=== PATIENT | female | born 1945 | race Caucasian/White ===

== ENCOUNTER 2019-03-07 18:11 | Observation (INO) | payer MEDICARE ==
[~2019-03-07 18:11] MED LIST: ISOVUE-370 76%-LOCM 1 ML ONE
[2019-03-07 18:27] LABS: #Basophils 0.1 thou/uL (0.0-0.2); #Eosinphils 0.2 thou/uL (0.0-0.7); #Lymphocytes 2.3 thou/uL (1.20-3.40); #Monocytes 0.6 thou/uL (0.11-0.59); %Basophils 1.2 % (0.0-1.0); %Eosinophils 3.2 % (0.0-10.0); %Lymphocytes 44.9 % (21.0-51.0); %Monocytes 11.7 % (0.0-10.0); Hemoglobin 12.7 g/dL (12.0-16.0); Mean Corpuscular HGB CONC 32.5 g/dL (32.0-36.0); Mean Corpuscular Hemoglobin 30.9 pg (27.0-31.0); Mean Corpuscular Volume 95.3 fL (78.0-98.0); Mean Platelet Volume 8.5 fL (7.4-10.4); Platelet Count 197 thou/uL (130-400); RBC Distribution Width 11.2 % (11.5-14.5); Red Blood Cell (RBC) Count 4.11 mill/uL (4.20-5.40)
--- NOTE | 2019-03-07 18:34 | RAD ---
Chest one view HISTORY: Chest pain. FINDINGS: No comparison. Cardiac silhouette is magnified by projection. Pulmonary vasculature is unre markable. Mediastinum is midline with aortic calcification. No confluent airspace consolidation or evidence of pneumothorax. Metallic clips over the upper abdomen. color television console monitor leads overlie the ch est. IMPRESSION: Atherosclerosis. No active cardiopulmonary abnormalities are demonstrated.
--- NOTE | 2019-03-07 18:35 | RAD ---
AP pelvis one view HISTORY: Pelvic pain. FINDINGS: Sacral alae and pelvic rings are intact. Degenerative changes of the hips and sacroiliac stanton ints. Extensive postoperative changes of the lumbar spine. No displaced fractures are apparent. Phleboliths project over the pelvis. IMPRESSION: No acute osseous abnormalities are demonstrated.
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
[2019-03-07 18:58] LABS: ALT (SGPT) 22 U/L (8-55); AST (SGOT) 26 U/L (5-34); Alkaline Phosphatase 87 U/L (40-110); Anion Gap 8 mmol/L (10-20); BUN (Urea Nitrogen) 12 mg/dL (9.8-20.1); Bilirubin, Total 0.3 mg/dL (0.2-1.2); Calc. Creatinine Clearance 0 mL/min (70-130); Calcium 8.9 mg/dL (7.8-10.44); Carbon Dioxide 31 mmol/L (23-31); Chloride 103 mmol/L (98-107); Estimated GFR-MDRD 68; Globulin 2.5 g/dL (2.4-3.5); Glucose 88 mg/dL (83-110); Potassium 4.2 mmol/L (3.5-5.1); Protein, Total 6.5 g/dL (6.0-8.3); Sodium 138 mmol/L (136-145)
[2019-03-07] MEDS ORDERED: Lidocaine 1% (PF) 30 ML VIAL ONE (19:47)
[2019-03-07] MEDS ORDERED: Dextrose 5% in Water 1,000 ML IV PRN (20:07)
[2019-03-07] MEDS ORDERED: Morphine 2 MG/ML SYRINGE SLOW IVP PRN (20:07)
[2019-03-07] MEDS ORDERED: Ondansetron PF 4 MG/2 ML Vial IVP PRN (20:07)
[2019-03-07] MEDS ORDERED: Promethazine HCl 25 MG/ML VIAL IM/IV PRN (20:07)
[2019-03-07] MEDS ORDERED: Dextrose 50% Abboject 50 ML SYRINGE SLOW IVP PRN (20:07)
[2019-03-07] MEDS ORDERED: traMADol HCl 50 MG TAB PO PRN ×2 (20:17)
[2019-03-07 20:19] LABS: INR-International Normal Ratio 0.9; Prothrombin Time 12.1 SEC (12.0-14.7)
[2019-03-07] MEDS ORDERED: CEFAZOLIN 1 GM VIAL ONE (20:35)
[2019-03-07] MEDS ORDERED: Adacel (T-DAP) 0.5 ML SYRINGE ONE (20:35)
[2019-03-07 21:16] LABS: Bilirubin Negative (Negative); Blood, Urine Negative (Negative); Clarity Clear (Clear); Glucose, Urine (Dipstick) Normal (Negative); Leukocyte Negative Leu/uL (Negative); Nitrite Negative (Negative); Protein, Urine (Dipstick) Negative (Neg-Trace); Urobilinogen Normal mg/dL (Less than 2)
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
[2019-03-07] MEDS ORDERED: Ketorolac Tromethamine 30 MG/ML VIAL ONE (22:51)
[2019-03-07] MEDS ORDERED: HYDROcodone/Acetaminophen 5/325 mg Tablet ONE (22:51)
[2019-03-08] MEDS: Senokot S 8.6-50 MG TAB PO SCH ×2 (00:26→08:48)
[2019-03-08] MEDS: Ibuprofen 200 MG TAB PO SCH ×3 (00:30→14:10)
[2019-03-08] MEDS: Gabapentin 100 MG CAP PO SCH ×3 (00:30→14:10)
[2019-03-08] MEDS: Acetaminophen 500 MG TAB PO SCH ×3 (00:30→12:55)
[2019-03-08 00:45] VITALS: BMI 19.8
[2019-03-08] MEDS: Cyclobenzaprine 10 MG TAB PO PRN ×2 (02:46→08:49)
[2019-03-08 05:14] LABS: #Basophils 0.1 thou/uL (0.0-0.2); #Eosinphils 0.2 thou/uL (0.0-0.7); #Monocytes 0.6 thou/uL (0.11-0.59); #Neutrophils 2.6 thou/uL (1.40-6.50); %Basophils 0.9 % (0.0-1.0); %Lymphocytes 36.7 % (21.0-51.0); %Neutrophils 48.4 % (42.0-75.0); Hemoglobin 11.5 g/dL (12.0-16.0); Mean Corpuscular HGB CONC 31.3 g/dL (32.0-36.0); Mean Corpuscular Volume 95.7 fL (78.0-98.0); Mean Platelet Volume 8.3 fL (7.4-10.4); Platelet Count 166 thou/uL (130-400); RBC Distribution Width 11.2 % (11.5-14.5); Red Blood Cell (RBC) Count 3.83 mill/uL (4.20-5.40); White Blood Cell (WBC) Count 5.3 thou/uL (4.8-10.8)
[2019-03-08 05:39] LABS: Anion Gap 9 mmol/L (10-20); BUN (Urea Nitrogen) 14 mg/dL (9.8-20.1); Calc. Creatinine Clearance 48 mL/min (70-130); Calcium 8.6 mg/dL (7.8-10.44); Carbon Dioxide 31 mmol/L (23-31); Chloride 105 mmol/L (98-107); Estimated GFR-MDRD 68; Glucose 86 mg/dL (83-110); Magnesium 1.9 mg/dL (1.6-2.6); Phosphorus 4.2 mg/dL (2.3-4.7); Potassium 4.2 mmol/L (3.5-5.1); Sodium 141 mmol/L (136-145)
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
--- NOTE | 2019-03-08 08:54 | PRG ---
DATE OF SERVICE: 03/08/2019 This morning, Ms. Quinteros's right leg seems to be feeling much better. She is still very sore to the right flank and there is this soft, very tender mass underneath one of the incisions that we used for her lumbar surgery three years ago. I am not sure this represents some kind of peculiar incisional hernia, but we can evaluate with ultrasound this morning and then follow up thereafter, if there is anything suspicious or concerning, although I do not believe that there will be. I discussed with her followup with her surgeon in [place] once she arrives . She thinks her daughter will be coming in today to arrange her getting back to [place]. Neurosurgery will sign off at this time. Job ID: [id number]
[2019-03-08] MEDS ORDERED: Aspirin 81 mg Enteric Coated Tablet PO SCH (09:00)
[2019-03-08] MEDS ORDERED: Polyethylene Glycol 3350 17 GM Packet PO SCH (09:00)
--- NOTE | 2019-03-08 12:40 | ULT ---
US Soft Tissue Abd Wall History: Pain. Evaluate for hernia. Comparison: CT examination prior day Findings: Although not well seen on the ultrasound examination, there is a right lumbar hernia along the right flank. Impression: Although not well seen on the ultrasound examination is a fat-containing inferior right l umbar hernia seen on the CT examination prior day.
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
[2019-03-08 15:24] VITALS: BP 87/48; TEMP 98
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
== END 2019-03-08 15:30 | disposition home or self-care (01) ==
LOC: ERS 18:11 → SURG A 20:07
PROVIDERS: ADMIT Surgery; ATTEND Surgery
DX: S50.11XA Contusion of right forearm, initial encounter (principal); V89.2XXA Person injured in unspecified motor-vehicle accident, traffic, initial encounter; S61.219A Laceration without foreign body of unspecified finger without damage to nail, initial encounter; J44.9 Chronic obstructive pulmonary disease, unspecified; I48.91 Unspecified atrial fibrillation; G89.29 Other chronic pain; M54.9 Dorsalgia, unspecified; R20.2 Paresthesia of skin
CPT/HCPCS: 12002; 36415; 70450; 71045; 71260; 72125; 72170; 74177; 76705; 80048; 80053; 81003; 83735; 84100; 85025; 85610; 90471; 90715; 93005; 94640; 96365; 96366; 96375; G0378; G0390; J0690; J1885; J2001; J2405; J7620; Q9966